=== PATIENT | male | born 1985 | race Hispanic/Latino ===

== ENCOUNTER 2019-01-01 01:08 | Emergency (ER) | payer SELFPAY ==
[2019-01-01] MEDS ORDERED: LIDOCAINE 2%-EPI 1:200,000 20 ML VIAL IJ ONE (02:36)
[2019-01-01] MEDS ORDERED: MORPHINE SULFATE 4 MG/1ML SYG ONE (05:01)
[2019-01-01] MEDS ORDERED: SULFAMETHOX-TMP DS 800/160 TAB ONE (05:01)
== END 2019-01-01 05:48 | disposition home or self-care (01) ==
LOC: EDH 01:08
DX: L02.213 Cutaneous abscess of chest wall (principal); J45.909 Unspecified asthma, uncomplicated; Z87.891 Personal history of nicotine dependence
CPT/HCPCS: 10060; 96372; 99283; J2270; J3490

== ENCOUNTER → 2023-11-14 | Emergency (ER) | payer BC ==
[~2023-11-14] VITALS: Ht 172.7 cm; Wt 95.3 kg
[~2023-11-14] MED LIST: HYDR-3421 PO; IBUP-2070 PO; IBUPROFEN 600 MG TABLET PO ONE; OSEL75 PO; OSELTAMIVIR PHOSPHATE 75 MG CAP PO ONE
[2023-11-14 17:22] VITALS: BP 119/75; PULSE 114; RESP 20
[2023-11-14 17:48] LABS: RAPID GROUP A STREP negative (NEGATIVE)
[2023-11-14 17:56] LABS: SARS-CoV-2, RNA, NAAT NEGATIVE SARS CoV-2 (NEGATIVE)
[2023-11-14 18:01] LABS: INFLUENZA TYPE B Negative For Type B (NEGATIVE)
[2023-11-14 18:13] LABS: INFLUENZA TYPE A Positive For Type A (NEGATIVE)
== END ==
LOC: EDH 17:21
DX: J10.1 Influenza due to other identified influenza virus with other respiratory manifestations (principal); B34.9 Viral infection, unspecified; J45.909 Unspecified asthma, uncomplicated; Z20.822 Contact with and (suspected) exposure to COVID-19
CPT/HCPCS: 99283; 87635; 87880; 87804 ×2; C9803

== ENCOUNTER 2023-11-26 19:10 | Emergency (ER) | payer BC, OTHER ==
[~2023-11-26] VITALS: Ht 170.2 cm; Wt 95.3 kg
[~2023-11-26 19:10] MED LIST changes: -IBUPROFEN 600 MG TABLET PO ONE; -OSELTAMIVIR PHOSPHATE 75 MG CAP PO ONE
[2023-11-26 19:37] LABS: SARS-CoV-2, RNA, NAAT NEGATIVE SARS CoV-2 (NEGATIVE)
[2023-11-26 19:42] LABS: INFLUENZA TYPE A Negative For Type A (NEGATIVE); INFLUENZA TYPE B Negative For Type B (NEGATIVE)
[2023-11-26] MEDS ORDERED: BENZ-39 PO (20:01)
[2023-11-26] MEDS ORDERED: ALBUHFA IH (20:01)
[2023-11-26] MEDS ORDERED: AZEL137S11 NS (20:01)
[2023-11-26 20:21] VITALS: BP 132/68; PULSE 88; RESP 20; O2SAT 99
== END 2023-11-26 20:24 | disposition home or self-care (01) ==
LOC: EDH 19:10
DX: J06.9 Acute upper respiratory infection, unspecified (principal); R05.9 Cough, unspecified; J45.909 Unspecified asthma, uncomplicated; Z20.822 Contact with and (suspected) exposure to COVID-19; Z79.899 Other long term (current) drug therapy
CPT/HCPCS: 71045; 87635; 87804

== ENCOUNTER 2025-10-18 16:46 | Emergency (ER) | payer BC ==
[~2025-10-18] VITALS: Ht 167.6 cm; Wt 95.3 kg
--- NOTE | 2025-10-18 16:57 | ERN ---
ED Note History of Present Illness Stated Complaint: NAUSEA Chief Complaint: Nausea,Vomiting,Diarrhea Time Seen by MD: 16:51 Dictation: IS A 39-YEAR-OLD MALE WITH NAUSEA VOMITING GENERALIZED BODY WEAKNESS ONSET WAS YESTERDAY. HE DENIES ANY ABDOMINAL PAIN AT THIS TIME, NO CHEST PAIN NO BACK PAIN NO SOB. NO CHANGES IN URINATION. STATES HE WENT TO A LOCAL URGENT CARE WHO HAD BLOOD DRAWN AND WAS TOLD HIS BLOOD SUGAR WAS HIGH AND HE DID GO TO THE EMERGENCY ROOM FOR CONTROLLED. HE STATES HE WAS UNAWARE THAT HE WAS A DIABETIC Allergies: Coded Allergies: No Known Drug Allergies (Unverified Allergy, Unknown, 11/14/23) Home Meds Active Scripts Azelastine HCl (Azelastine HCl) 137 Mcg (0.1 %) [place].pump, 1 SPRAY NS BID for 30 Days, #137 MCG Prov:MARTA SAMPSON 11/26/23 Albuterol Sulfate (Ventolin Hfa/Proventil Hfa/Proair Hfa) 90 Mcg Puff, 2 PUFF IH Q4H PRN for SHORTNESS OF BREATH/WHEEZING for 30 Days, #1 INH 0 Refills Prov:MARTA SAMPSON 11/26/23 Benzonatate (Tessalon Perles) 100 Mg Cap, 100 MG PO TID for cough for 7 Days, #21 CAP 0 Refills Prov:MARTA SAMPSON 11/26/23 Oseltamivir Phosphate (Tamiflu) 75 Mg Cap, 75 MG PO BID for 5 Days, #9 CAP 0 Refills Prov:[facility] 11/14/23 Ibuprofen (Ibuprofen) 600 Mg Tablet, 600 MG PO Q6H PRN for PAIN, #15 TAB 0 Refills Prov:[facility] 11/14/23 Hydroxyzine HCl (Hydroxyzine HCl) 25 Mg Tablet, 25 MG PO QIDP PRN for anxiety, #15 TAB 0 Refills Prov:TEDDY COREAS MD 09/24/22 Past Medical History Past Medical History: No Pertinent History, Asthma Surgical History: None Social History: Negative, Lives with family RN Note Reviewed/Agreed w/PFSH: Yes Review of System Dictation CONSTITUTIONAL: NEGATIVE EXCEPT FOR HPI GB W HEAD/FACE: NEGATIVE EXCEPT FOR HPI EENT: NEGATIVE EXCEPT FOR HPI RESPIRATORY: NEGATIVE EXCEPT FOR HPI GASTROINTESTINAL/ABDOMINAL: NEGATIVE EXCEPT FOR HPI NAUSEA VOMITING WITHOUT PAIN GENITOURINARY: NEGATIVE EXCEPT FOR HPI MUSCULOSKELETAL: NEGATIVE EXCEPT FOR HPI INTEGUMENTARY: NEGATIVE EXCEPT FOR HPI NEUROLOGICAL/PSYCH: NEGATIVE EXCEPT FOR HPI HEMATOLOGIC/LYMPHATIC: NEGATIVE EXCEPT FOR HPI ALL SYSTEMS NEGATIVE, EXCEPT NOTED ABOVE. 13 POINT REVIEW OF SYSTEMS ASSESSED AND ALL NEGATIVE EXCEPT FOR ABOVE. Initial Vital Sign VS Vital Signs Date Time Temp Pulse Resp B/P (MAP) Pulse Ox O2 Delivery O2 Flow Rate FiO2 10/18/25 16:53 98.1 118 18 134/88 96 Room Air 0 10/18/25 17:49 21 Physical Exam Dictation VITAL SIGNS REVIEWED GENERAL APPEARANCE: ALERT, ORIENTED X 3, NO ACUTE DISTRESS, WELL DEVELOPED, NOURISHED. MORBID OBESITY HEAD AND FACE: NON-TRAUMATIC. EYES: PERRL, PINK CONJUNCTIVAS, EYELID NO TRAUMA, ANTERIOR CHAMBER WITH ARCUS SENILIS. EARS: PINNAS INTACT AND NO SIGNS OF TRAUMA OR ERYTHEMA EAR CANALS CLEAR AND NO DISCHARGE TM NO ERYTHEMA NOSE: NO DISCHARGE, NO BLEEDING. OROPHARYNX: MOUTH NORMAL, TONGUE PINK, PHARYNX CLEAR,NO ERYTHEMA, TONSILS NO EXUDATES, NO ABSCESSES NOTED, MUCOUS MEMBRANE MOIST NECK: SUPPLE, NON-TENDER, NO THYROMEGALY, NO MASSES, NO JVD, NO BRUITS BREAST:DEFERRED CHEST:NO TENDERNESS, NO CREPITUS, NO PARADOXICAL MOVEMENT, NO RETRACTIONS LUNGS:CLEAR, WELL-VENTILATED, SYMMETRIC, NO RALES, NO WHEEZING, NO RHONCHI, NO STRIDOR, GOOD BREATH SOUNDS BILATERALLY HEART: TACHYCARDIA/REGULAR, NO MURMUR, NO GALLOPS VASCULAR: NO PERIPHERAL EDEMA, ABDOMEN: SOFT, POSITIVE BOWEL SOUNDS, NONDISTENDED, NO GUARDING, NONTENDER, NO REBOUND, NO MASSES NO HEPATOMEGALY, NO SPLENOMEGALY, NO SPARKS'S SIGN, NO HERNIAS. FOCAL TENDERNESS RECTAL: DEFERRED GENITAL: DEFERRED NEUROLOGICAL: NORMAL SPEECH, MOTOR FUNCTION INTACT, SENSORY FUNCTION INTACT MUSCULOSKELETAL: NECK NONTENDER, FULL RANGE OF MOTION, BACK NONTENDER, FULL RANGE OF MOTION, EXTREMITIES: NONTENDER, FULL RANGE OF MOTION SKIN: COLOR PINK, DRY, NO TURGOR, NO RASH, NO LACERATIONS, NO ABRASIONS, NO CONTUSIONS. LYMPHATIC: DEFERRED Results (Laboratory/Radiology) Laboratory/Radiology Laboratory Tests Test 10/18/25 17:00 10/18/25 17:03 10/18/25 17:56 10/18/25 18:12 White Blood Count 16.6 K/uL (4.8-10.8) H Red Blood Count 4.64 MIL/uL (4.50-6.20) Hemoglobin 13.2 g/dL (14.0-18.0) L Hematocrit 39.2 % (42-54) L Mean Corpuscular Volume 84.5 fL (79-99) Mean Corpuscular Hemoglobin 28.4 pg (27.0-33.0) Mean Corpuscular Hemoglobin Concent 33.7 g/dL (32.0-36.0) Red Cell Distribution Width 12.3 % (11.0-15.5) Platelet Count 510 K/uL (130-400) H Mean Platelet Volume 9.4 fL (7.5-10.5) Immature Granulocyte % (Auto) 1.0 % (0-1) Neutrophils (%) (Auto) 78.8 % (40.0-77.0) H Lymphocytes (%) (Auto) 10.2 % (21.0-51.0) L Monocytes (%) (Auto) 9.2 % (3.0-13.0) Eosinophils (%) (Auto) 0.5 % (0.0-8.0) Basophils (%) (Auto) 0.3 % (0.0-5.0) Neutrophils # (Auto) 13.1 K/uL (1.8-7.7) H Lymphocytes # (Auto) 1.7 K/uL (1.0-4.8) Monocytes # (Auto) 1.5 K/uL (0.1-1.0) H Eosinophils # (Auto) 0.09 K/uL (0.00-0.70) Basophils # (Auto) 0.05 K/uL (0.00-0.20) Absolute Immature Granulocyte (auto 0.16 K/uL (0-1) Nucleated Red Blood Cells 0.0 % (0.0-0.19) Sodium Level 127 mmol/L (136-145) L Potassium Level 4.4 mmol/L (3.5-5.1) Chloride Level 91 mmol/L (101-111) L Carbon Dioxide Level 26 mmol/L (21-32) Blood Urea Nitrogen 13 mg/dL (7-18) Creatinine 0.9 mg/dL (0.5-1.3) Glomerular Filtration Rate Calc 111 mL/min (>90) Random Glucose 417 mg/dL (70-105) *H Whole Blood Ketones Quantitative 0.5 mmol/L (0.0-0.6) Total Calcium 8.5 mg/dL (8.5-10.1) Urine Color YELLOW (YELLOW) Urine Appearance CLEAR (CLEAR) Urine pH 6.0 (5.0-8.0) Urine Specific [place] 1.044 (1.001-1.031) Urine Protein 30 mg/dL (NEGATIVE) H Urine Glucose (UA) >=1000 mg/dL (NEGATIVE) H Urine Ketones 10 mg/dL (NEGATIVE) H Urine Occult Blood +- (TRACE) (NEGATIVE) H Urine Nitrate NEGATIVE (NEGATIVE) Urine Bilirubin NEGATIVE mg/dL (NEGATIVE) Urine Urobilinogen 2.0 mg/dL (0.2-1.0) H Urine Leukocyte Esterase 250 Vivi/uL (NEGATIVE) H Urine RBC 6-10 /HPF (0-1) H Urine WBC 11-25 /HPF (0-1) H Urine Squamous Epithelial Cells RARE /HPF (0-2) Urine Bacteria RARE /HPF (None Seen) Lactic Acid Level 1.1 mmol/L (0.8-2.5) Whole Blood Glucose 358 MG/DL (70-110) H Test 10/18/25 20:26 Whole Blood Glucose 235 MG/DL (70-110) H Labs Reviewed?: Yes ED Course ED Course Orders Procedure Category Date Status Time Ketone Blood LAB 10/18/25 Complete Quantitative 16:54 Cbc With Differential LAB 10/18/25 Complete 16:54 Urinalysis Profile LAB 10/18/25 Complete 16:54 0.9%Nacl 1000ml (Ns PHA 10/18/25 Complete 1000ml) 17:00 Ondansetron 4mg Inj PHA 10/18/25 Complete (Zofran 4mg Inj) 17:00 Basic Metabolic Panel LAB 10/18/25 Complete 16:54 Culture Urine JOSE 10/18/25 In Process 17:19 Insulin Regular, PHA 10/18/25 Complete Human 3ml (Humulin R 17:42 0.9%Nacl 1000ml (Ns PHA 10/18/25 Complete 1000ml) 18:00 Ceftriaxone 1g Vial PHA 10/18/25 Complete (Rocephine 1g Inj) 18:00 Blood Cult JOSE 10/18/25 In Process 17:44 Lactic Acid LAB 10/18/25 Complete 17:44 Acetaminophen 500mg PHA 10/18/25 Complete Tab (Tylenol 500mg T 19:30 Bedside Glucose CPOE 10/18/25 Transmitted Fingerstick 19:36 Current Medications Medications (Trade) Dose Ordered Sig/Meredith Route PRN Reason Start Time Stop Time Status Last Admin Dose Admin Acetaminophen (TYLenol 500MG TAB) 1,000 mg ONCE ONCE PO 10/18/25 19:30 10/18/25 19:31 DC Ceftriaxone Sodium (ROCEphine 1G INJ) 1 gm ONCE ONCE IVPB 10/18/25 18:00 10/18/25 18:01 DC 10/18/25 18:10 Insulin Human Regular (humuLIN R 100 UNIT/ML 3ML) 15 unit ONCE STAT IV 10/18/25 17:42 10/18/25 17:44 DC 10/18/25 18:17 Ondansetron HCl (zoFRAN 4MG INJ) 4 mg ONCE ONCE IVP 10/18/25 17:00 10/18/25 17:01 DC 10/18/25 17:45 Sodium Chloride 1,000 ml @ 0 mls/hr ONCE ONCE IV 10/18/25 17:00 10/18/25 17:01 DC 10/18/25 17:46 Sodium Chloride 1,000 ml @ 0 mls/hr ONCE ONCE IV 10/18/25 18:00 10/18/25 18:01 DC 10/18/25 18:20 Vital Signs Date Time Temp Pulse Resp B/P (MAP) Pulse Ox O2 Delivery O2 Flow Rate FiO2 10/18/25 19:50 99.9 102 16 151/70 97 Room Air* 0 21 10/18/25 18:45 100.9 103 16 117/67 95 Room Air* 0 21 10/18/25 17:49 100.8 103 19 122/75 95 Room Air* 0 21 10/18/25 16:53 98.1 118 18 134/88 96 Room Air 0 2035/REPEAT BLOOD SUGAR 235 AFTER TREATMENT. PATIENT HAS RECEIVED IV REGULAR INSULIN WITH2 L NORMAL SALINE ADDITIONALLY HE WAS GIVEN ROCEPHIN1 G FOR UTI STRONGLY ADVISED TO WORK WITH HIS DOCTOR AT [facility] FOR TREATMENT OF HIS UTI AND NEWLY DIAGNOSED DIABETES. Medical Decision Making MDM MDM: DIFFERENTIAL DIAGNOSIS: UNCONTROLLED DIABETES/HYPERTENSION/ELECTROLYTE IMBALAN CE/DEHYDRATION/UTI/DKA RATIONALE: TESTS CONSIDERED AND ORDERED SECONDARY TO SHARED DECISION MAKING INCLUDE: LABS PREVIOUS OUTSIDE RECORDS REVIEWED: OLD ER VISITS. RISK OF COMPLICATION AND/OR MORBIDITY OR MORTALITY OF PATIENT MANAGEMENT: NONE MEDICATIONS-PER MEDICATION RECONCILIATION NEED FOR HOSPITALIZATION: PATIENT DOES NOT MEET CRITERIA FOR HOSPITALIZATION. REFUSED NEED FOR EMERGENCY MAJOR/MINOR SURGERY: NO THERE ARE NO SOCIAL CONCERNS WITH THIS PATIENT. PRESCRIPTION DRUG MANAGEMENT METFORMIN/AUGMENTIN PRESCRIPTIONS WILL INCLUDE SYMPTOMATIC CARE PATIENT'S PRIOR EXTERNAL MEDICAL RECORDS FROM OTHER ER VISITS WERE REVIEWED BY ME INDICATED. PRIOR TESTING AND RESULTS FROM PREVIOUS VISITS WERE REVIEWED. PRIOR TESTS WERE TAKEN INTO ACCOUNT WITH MEDICAL DECISION MAKING AND RESOURCE UTILIZATION, INDEPENDENT HISTORIAN/HISTORIANS WERE USED TO OBTAIN COMPLETE MEDICAL HISTORY. I INDEPENDENTLY INTERPRETED THE TEST THAT WERE PERFORMED, RESULTS WERE REVIEWED BY ME AND CONSIDERED FINDINGS ON RADIOLOGY IF ORDERED. MEDICAL MANAGEMENT AND EXAMINATION INTERPRETATION DISCUSSIONS WERE HAD BY ME WITH OTHER QUALIFIED HEALTHCARE PROFESSIONALS INDICATED FOR THE PATIENT'S CARE. DX & DISP Disposition: Discharge Departure Impression: Primary Impression: Nausea & vomiting Additional Impressions: Uncontrolled diabetes mellitus, Hyponatremia, Hypochloremia, Acute cystitis with hematuria, Obesity, Leukocytosis Condition: Stable Scripts Metformin HCl (Metformin HCl) 1,000 Mg Tablet 1 TAB PO BID for 30 Days, #60 TAB 0 Refills Prov: MARK [facility] 10/18/25 Amoxicillin/Potassium Clav (Amox Tr-K Clv 875-125 mg Tab) 875 Mg-125 Mg Tablet 1 EACH PO BID for 7 Days, #14 TAB 0 Refills Prov: MARK HOWARD [facility] 10/18/25 Additional Instructions: FOLLOW-UP WITH PRIMARY CARE PROVIDER IN 1 TO 2 DAYS. TAKE MEDICATIONS DIRECTED HERE IN THE EMERGENCY ROOM. OKAY TO CONTINUE HOME MEDICATIONS UNLESS OTHERWISE DISCUSSED DURING YOUR VISIT IN THE EMERGENCY ROOM TODAY. RETURN TO YOUR NEAREST EMERGENCY ROOM IF SYMPTOMS WORSEN OR IF THERE IS NO IMPROVEMENT. CALL 911 IF YOU NEED IMMEDIATE ASSISTANCE. TAKE TYLENOL OR MOTRIN [id number] NEEDED AND IF NO CONTRAINDICATIONS ARE PRESENT. INCREASE ORAL HYDRATION. A WOUND CULTURE OR URINE CULTURE WAS ORDERED HERE IN THE EMERGENCY ROOM DEPARTMENT PLEASE FOLLOW-UP WITH PRIMARY CARE PROVIDER AND ADVISE THEM TO GET REPEAT PORTS FROM OUR FACILITY. IF YOU HAD ANY JULIA WRAP/SPLINTS THAT WERE APPLIED HERE, PLEASE DO NOT REMOVE THEM UNTIL YOU SEE YOUR PRIMARY CARE OR SPECIALTY. TAKE METFORMIN TWICE A DAY DIRECTED WITH FOOD. TAKE ANTIBIOTICS DIRECTED UNTIL GONE. INCREASE YOUR WATER INTAKE. START A EXERCISE HYGIENE WITH WALKING AND LOSE WEIGHT. SEE YOUR PRIMARY CARE DOCTOR FOR FOLLOW UP Referrals: SELF,REFERRAL (PCP) Time of Disposition: 20:36 I have reviewed the case, and I agree with, Diagnosis and Plan [facility] Oct 18, 2025 16:57
[2025-10-18 17:18] LABS: IMMATURE GRANULOCYTE ABSOLUTE 0.16 K/uL (0-1); NUCLEATED RED BLOOD CELLS 0.0 % (0.0-0.19); PLATELET COUNT (AUTO) 510 K/uL (130-400); RED BLOOD CELL COUNT(AUTO) 4.64 MIL/uL (4.50-6.20); RED CELL DISTRIBUTION WIDTH 12.3 % (11.0-15.5); WHITE BLOOD COUNT (AUTO) 16.6 K/uL (4.8-10.8)
[2025-10-18 17:18] LABS: ADD UA MICROSCOPIC YES; APPEARANCE,URINE CLEAR (CLEAR); GLUCOSE, URINE (UA) >=1000 mg/dL (NEGATIVE); LEUKOCYTE ESTERASE ,URINE 250 Leu/uL (NEGATIVE); NITRATE,URINE NEGATIVE (NEGATIVE); OCCULT BLOOD,URINE +- (TRACE) (NEGATIVE)
[2025-10-18 17:25] LABS: SQUAMOUS EPITHELIAL CELL,UR RARE /HPF (0-2)
[2025-10-18 17:27] LABS: CREATININE 0.9 mg/dL (0.5-1.3); GLOMERULAR FILTR. RATE CALC 111.0 mL/min (>90); SODIUM SERUM 127.0 mmol/L (136-145); UREA NITROGEN, BLOOD 13.0 mg/dL (7-18)
[2025-10-18 17:37] LABS: GLUCOSE,RANDOM 417.0 mg/dL (70-105)
[2025-10-18] MEDS: 0.9%NACL 1000ML 1,000 ML IV ONE ×2 (17:46→18:20)
--- NOTE | 2025-10-18 18:15 | NUR ---
PER LUCIEN PERRY NP TO GIVE 25 UNITS OF INSULIN IV FOR BLOOD SUGAR FINGERSTICK OF 358, PATIENT RESTING IN BED, CALL LIGHT IN REACH Addendum: 10/18/25 at 1906 by NOREEN 15 UNITS OF INSULIN , NOT 25 UNITS
--- NOTE | 2025-10-18 19:34 | NUR ---
PT CARE ASSUMED AT THIS TIME
--- NOTE | 2025-10-18 20:28 | NUR ---
PT A&OX4. PT REFUSED TYLENOL ORDERED BY ED ECONOMIC DEVELOPMENT COORDINATOR MARK. ED RN EDUCATED PT ABOUT THE BENEFITS OF MEDICATION. PT VERBALIZED UNDERSTANDING OF EDUCATED. PT STILL REFUSING. ED ECONOMIC DEVELOPMENT COORDINATOR MARK MADE AWARE.
--- NOTE | 2025-10-18 20:31 | NUR ---
BLOOD SUGAR CHECK DONE AT BEDSIDE. RAYMUNDO FLORES MADE AWARE OF RESULT.
[2025-10-18 20:46] VITALS: BP 153/74; PULSE 100; RESP 17; TEMP 99.8; O2SAT 97
== END 2025-10-18 20:49 | disposition home or self-care (01) ==
LOC: EDH 16:46
DX: R11.2 Nausea with vomiting, unspecified (principal); E11.65 Type 2 diabetes mellitus with hyperglycemia; E87.1 Hypo-osmolality and hyponatremia; N30.01 Acute cystitis with hematuria; E87.8 Other disorders of electrolyte and fluid balance, not elsewhere classified; D72.829 Elevated white blood cell count, unspecified; E66.9 Obesity, unspecified; Z68.33 Body mass index [BMI] 33.0-33.9, adult; Z79.899 Other long term (current) drug therapy; Z79.84 Long term (current) use of oral hypoglycemic drugs
CPT/HCPCS: 99284; 96374; 96375; 80048; 85025; 87040 ×2; 87086; 82948 ×2; 83605; 82010; 81001; 36415; J1815; J0696; J2405